=== PATIENT | male | born 1950 | race Caucasian/White ===

== ENCOUNTER 2020-03-08 12:41 | Emergency (ER) | payer MEDICARE, OTHER ==
[2020-03-08] MEDS ORDERED: Aspirin Chewable 81 MG TAB ONE (13:17)
[2020-03-08] MEDS ORDERED: Ketorolac Tromethamine 30 MG/ML VIAL ONE (13:17)
[2020-03-08 13:22] LABS: #Basophils 0.1 thou/uL (0.0-0.2); #Eosinphils 0.1 thou/uL (0.0-0.7); #Lymphocytes 1.6 thou/uL (1.20-3.40); #Monocytes 0.6 thou/uL (0.11-0.59); #Neutrophils 5.8 thou/uL (1.40-6.50); %Basophils 1.1 % (0.0-1.0); %Eosinophils 1.1 % (0.0-10.0); %Lymphocytes 19.6 % (21.0-51.0); %Neutrophils 71.3 % (42.0-75.0); Hemoglobin 15.5 g/dL (14.0-18.0); Mean Corpuscular HGB CONC 32.8 g/dL (32.0-36.0); Mean Corpuscular Hemoglobin 28.6 pg (27.0-31.0); Mean Corpuscular Volume 87.4 fL (78.0-98.0); Mean Platelet Volume 10.9 fL (7.4-10.4); Platelet Count 202 thou/uL (130-400); RBC Distribution Width 11.2 % (11.5-14.5); Red Blood Cell (RBC) Count 5.42 mill/uL (4.70-6.10); White Blood Cell (WBC) Count 8.1 thou/uL (4.8-10.8)
--- NOTE | 2020-03-08 13:35 | RAD ---
Radiograph chest and right RIBS 4 views: 03/08/2020 HISTORY: 69-year-old male with right-sided chest pain COMPARISON: None FINDINGS: There is severe hyperlucency due to severe bullous disease throughout the entire right lung, with [place] of pulmonary markings, and hyperinflation of right lung. There are multiple septations between bullae at the right base. No pneumothorax identified. No grossly displaced right rib fracture identif ied. Lesser degree of hyperlucency involving left lung. Prominent interstitial markings, mild, at left mid -lower lung zone may represent compressive atelectasis due to adjacent bullae. No cardiomegaly. No consolidation. IMPRESSION: 1.) Paraseptal emphysema, asymmetrically very severe on the right. 2.) No grossly displaced acute rib fracture identified.
[2020-03-08 13:38] LABS: ALT (SGPT) 25 U/L (8-55); AST (SGOT) 27 U/L (5-34); Albumin 4.1 g/dL (3.4-4.8); Alkaline Phosphatase 109 U/L (40-110); Anion Gap 16 mmol/L (10-20); BUN (Urea Nitrogen) 14 mg/dL (8.4-25.7); CK (CPK) 233 U/L (30-200); Calc. Creatinine Clearance 0 mL/min (70-130); Carbon Dioxide 23 mmol/L (23-31); Chloride 106 mmol/L (98-107); Globulin 2.3 g/dL (2.4-3.5); Glucose 98 mg/dL (80-115); Potassium 3.7 mmol/L (3.5-5.1); Protein, Total 6.4 g/dL (5.8-8.1); Sodium 141 mmol/L (136-145)
== END 2020-03-08 14:11 | disposition home or self-care (01) ==
LOC: MADERS 12:41
DX: S22.31XA Fracture of one rib, right side, initial encounter for closed fracture (principal); J43.9 Emphysema, unspecified; I25.10 Atherosclerotic heart disease of native coronary artery without angina pectoris; Z79.82 Long term (current) use of aspirin; Z79.899 Other long term (current) drug therapy; X50.9XXA Other and unspecified overexertion or strenuous movements or postures, initial encounter
CPT/HCPCS: 80053; 82550; 84484; 85025; 93005; J1885

== ENCOUNTER 2020-05-19 18:26 | Emergency (ER) | payer MEDICARE, OTHER ==
[2020-05-19] MEDS ORDERED: Ibuprofen 600 MG TAB ONE (19:38)
--- NOTE | 2020-05-19 20:15 | RAD ---
Chest one view HISTORY: Fever. COMPARISON: 03/08/2020. FINDINGS: Cardiac silhouette is magnified by projection. Pulmonary vasculature are unremarkable. Mediastinum is midline with aortic calcification. Lungs remain prominently hyperinflated. Large, severe bullae throughout the right lung and the left u pper lobe. Subtle ill-defined opacity overlying the left cardiac margin partially obscures detail. Slight increa sed density. No evidence of pneumothorax. IMPRESSION : Subtle left upper lobe lingular infiltrate. Correlate for left upper lobe pneumonitis. Severe emphysema. Stable. Atherosclerosis.
== END 2020-05-19 20:45 | disposition home or self-care (01) ==
LOC: MADERS 18:26
DX: J18.9 Pneumonia, unspecified organism (principal); H66.41 Suppurative otitis media, unspecified, right ear; H65.93 Unspecified nonsuppurative otitis media, bilateral; I25.10 Atherosclerotic heart disease of native coronary artery without angina pectoris; E78.5 Hyperlipidemia, unspecified; E78.00 Pure hypercholesterolemia, unspecified; J43.9 Emphysema, unspecified; Z87.891 Personal history of nicotine dependence
CPT/HCPCS: 71045

== ENCOUNTER 2020-05-21 22:48 | Emergency (ER) | payer MEDICARE, OTHER ==
[2020-05-21] MEDS ORDERED: Ibuprofen 800 MG TAB ONE (23:14)
[2020-05-21] MEDS ORDERED: Sodium Chloride 0.9% 250 ML 250 ML ONE ×2 (23:14→23:17)
[2020-05-21] MEDS ORDERED: Azithromycin 500 MG VIAL ONE (23:14)
--- NOTE | 2020-05-21 23:37 | RAD ---
Portable frontal chest radiograph: 05/21/2020 COMPARISON: 05/19/2020 HISTORY: Shortness of breath with cough FINDINGS: There is severe emphysematous change noted bilaterally. There is interstitial and alveolar opacity in the left perihilar region/left lung base, as seen on the prior exam. No discrete pneumothorax. No large volume pleural effusion. Stable heart and mediastinal contours. IMPRESSION: Severe bullous emphysematous change. Interstitial and alveolar opacity in the left perihi lar region/left base is suspicious for infectious pneumonitis/aspiration. Follow-up imaging following treatment advised to document resolution.
[2020-05-21 23:39] LABS: Hemoglobin 14.6 g/dL (14.0-18.0); Mean Corpuscular HGB CONC 32.8 g/dL (32.0-36.0); Mean Corpuscular Hemoglobin 28.3 pg (27.0-31.0); Mean Corpuscular Volume 86.4 fL (78.0-98.0); Mean Platelet Volume 10.8 fL (7.4-10.4); Platelet Count 76 thou/uL (130-400); RBC Distribution Width 11.3 % (11.5-14.5); Red Blood Cell (RBC) Count 5.15 mill/uL (4.70-6.10); White Blood Cell (WBC) Count 1.8 thou/uL (4.8-10.8)
[2020-05-21 23:40] LABS: ALT (SGPT) 21 U/L (8-55); AST (SGOT) 30 U/L (5-34); Albumin 3.6 g/dL (3.4-4.8); Alkaline Phosphatase 64 U/L (40-110); Anion Gap 17 mmol/L (10-20); BUN (Urea Nitrogen) 11 mg/dL (8.4-25.7); Bilirubin, Total 1.1 mg/dL (0.2-1.2); Calc. Creatinine Clearance 0 mL/min (70-130); Calcium 7.5 mg/dL (7.8-10.44); Carbon Dioxide 20 mmol/L (23-31); Chloride 103 mmol/L (98-107); Globulin 2.2 g/dL (2.4-3.5); Glucose 125 mg/dL (80-115); Potassium 3.5 mmol/L (3.5-5.1); Protein, Total 5.8 g/dL (5.8-8.1); Sodium 136 mmol/L (136-145)
[2020-05-22] MEDS ORDERED: Vancomycin 1.5 GRAM/300 ML BAG ONE (00:04)
[2020-05-22 00:07] LABS: Band 12 % (5-11); Lymphocytes 11 % (21-51); MDiff Complete? YES; Monocytes 6 % (0-10); Neutrophil 70 % (42-75); Platelet Morphology Comment Appears Decreased; RBC Morphology Normal; Reactive Lymphocytes 1 % (0-10)
[2020-05-22 01:04] LABS: SARS-CoV-2 NAA Rapid Test DETECTED (NotDetected)
== END 2020-05-22 01:19 | disposition short-term general hospital (02) ==
LOC: MADERS 22:48
DX: A41.89 Other specified sepsis (principal); U07.1 COVID-19; J12.82 Pneumonia due to coronavirus disease 2019; R09.02 Hypoxemia; I50.9 Heart failure, unspecified; I25.10 Atherosclerotic heart disease of native coronary artery without angina pectoris; E78.5 Hyperlipidemia, unspecified; E78.00 Pure hypercholesterolemia, unspecified; J43.9 Emphysema, unspecified; Z87.891 Personal history of nicotine dependence; Z79.82 Long term (current) use of aspirin; Z79.51 Long term (current) use of inhaled steroids; Z79.899 Other long term (current) drug therapy
CPT/HCPCS: 0240U; 71045; 80053; 83605; 83880; 84484; 85025; 85060; 85379; 86140; 87040; 93005; 96365; J0456; J3370; J7050

== ENCOUNTER 2020-08-10 12:55 | Emergency (ER) | payer MEDICARE, OTHER ==
[2020-08-10] MEDS ORDERED: Ketorolac Tromethamine 60 MG/2 ML VIAL ONE (13:57)
== END 2020-08-10 17:55 | disposition home or self-care (01) ==
LOC: MADERS 16:33
DX: S22.32XA Fracture of one rib, left side, initial encounter for closed fracture (principal); I25.10 Atherosclerotic heart disease of native coronary artery without angina pectoris; E78.00 Pure hypercholesterolemia, unspecified; E78.5 Hyperlipidemia, unspecified; J43.9 Emphysema, unspecified; Z87.891 Personal history of nicotine dependence; X58.XXXA Exposure to other specified factors, initial encounter
CPT/HCPCS: J1885